=== PATIENT | female | born 1960 | race African-American/Black ===

== ENCOUNTER 2016-05-27 05:41 | Inpatient (IN) | payer OTHER ==
--- NOTE | 2016-05-22 09:53 | PREOPHP ---
DATE OF ADMISSION: 05/27/2016 PREOPERATIVE INTERNAL MEDICINE CONSULTATION, MEDICAL HISTORY AND PHYSICAL The patient to have surgery with Dr. Isra Dubose 05/27/2016. REQUESTING PHYSICIAN: Consultation requested by Dr. Isra Dubose for medical evaluation and cleara nce of a 56-year-old woman about to undergo surgery with Dr. Isra Dubose. Thank you, Dr. Dubose, for allowing us to participate in the care of this patient. HISTORY OF PRESENT ILLNESS: Julia Cornelius a 56-year-old woman, problems with her neck and cervical spine, currently being admitted for correction of the above problem. In terms of her past surgical history, she has had left shoulder arthroscopic surgery, left elbow cline rgery, as well as injury to her left elbow, has carpal tunnel, right and left, and also had a right elbow surgery. Other than that, she has not broken any bones, is not allergic to any medications, d oes not take any chronic medications, and states that her health has been relatively good. SOCIAL HISTORY: The patient is , has 5 children and 6 grandchildren, all in good health gabriela e for 1 grandchild has type 1 diabetes. She does not smoke. Alcohol socially. Does not drink coff ee, is employed and usually has no difficulty sleeping at night. FAMILY HISTORY: Both parents are . Father at age 81, was a diabetic, had hypertension and congestive heart failure. Mother at age 70, had different issues. One brother of al cohol-related issues. There is a family history of diabetes, heart and cancer, as well as hypertens ion and stroke. REVIEW OF SYSTEMS: HEENT: Periodic headaches, probably tension headaches. CARDIORESPIRATORY: Denies any chest pain or shortness of breath. GASTROINTESTINAL: No melena or hematemesis; however, does have some signs and symptoms of irritable bowel syndrome. GENITOURINARY: No urgency, frequency. GYNECOLOGIC: Currently perimenopausal. Up to date with her supervisor telephone answering service. MUSCULOSKELETAL: Positive for neck pain. NEUROPSYCHIATRIC: Unremarkable. GENERAL HEALTH: As above. PHYSICAL EXAMINATION: VITAL SIGNS: The patient's blood pressure was 112/70, pulse was 60 and regular, respirations were 1 8, temperature 98.3, height 5 feet 5 inches, weight 228 pounds. GENERAL: The patient was noted to be a well-developed, well-nourished female, alert and cooperative , in no apparent acute distress, oriented to time, place, and person. HEAD, EARS, EYES, NOSE AND THROAT: Head was atraumatic. Eyes: Pupils were equal, reactive to ligh t and accommodation. Fundi were benign. Tympanic membranes were unremarkable. Nose was negative. Mouth was unremarkable. Fair oral hygiene was present. NECK: Supple without any rigidity. Trachea was midline. Thyroid was within normal limits. Neck v eins were flat. Carotid pulses were equal. BACK: Unremarkable. CHEST: Symmetrical. BREASTS AND AXILLARY: Did not reveal any masses. LUNGS: Clear to percussion and auscultation. HEART: Revealed a regular rhythm without any murmurs, rubs, or gallops being elicited. ABDOMEN: Soft, good bowel sounds were noted. No significant organomegaly, masses, or tenderness. GENITALIA: Normal female external genitalia. PELVIC AND RECTAL: Per supervisor telephone answering service, done recently, unremarkable. EXTREMITIES: Did not reveal any clubbing, edema, or cyanosis. The scarring was noted from prior cline rgical procedures. Peripheral pulses were physiologic. SKIN: Moist and warm without any eruptions. No gross lymphadenopathy was noted. NEUROLOGIC: Grossly intact. IMPRESSION: 1. Cervical disk disease. 2. Metabolic syndrome. 3. History of glaucoma. 4. Stable health. DISCUSSION: Review of laboratory and other data revealed the following: The patient's chemistry pa corinna revealed normal electrolytes, glucose, BUN, creatinine. Liver function tests revealed an elevat ed alkaline phosphatase; however, normal PT and OT. Possibly secondary to bone. CBC revealed a whi te count of 11,000 and no obvious source of infection; however, the rest of the CBC was normal. Sed rate was normal as well. UA, PT, PTT were basically normal other than moderate amount of blood, po ssibly secondary to contamination. EKG was normal as was her chest x-ray. DISCUSSION: Dr. Dubose, I see no contraindication in this patient undergoing current proposed catalina lisa under the desired form of anesthesia. I feel she is a suitable candidate at this particular po int in time. The patient currently is on no medications and is not allergic to any medications and has been managing relatively well despite the fact that she has discomfort from her cervical disk di sease. Thank you again, Dr. Dubose, for allowing us to participate in the care of this patient. Will fol low her along with you during her stay at [facility]. Thank you again, Dr. Dubose, for allowing us to participate in care of this patient. Dictated By: AC GUALLPA MD SS/ELISSA Conf#: [id number] DID#: [id number]
[2016-05-24 09:33] VITALS: Ht 165.1 cm; Wt 103.9 kg
[~2016-05-27] VITALS: Ht 165.1 cm; Wt 103.9 kg
[2016-05-27] VITALS (23 sets, daily range): BP systolic 102–143; BP diastolic 55–78; PULSE 71–98; RESP 14–53
[~2016-05-27 05:41] MED LIST: CEFAZOLIN 2 GM/50 ML (PMX) 50 ML IVPB ONE; LACTATED RINGER'S 1,000 ML IV* ONE
[2016-05-27] MEDS ORDERED: PROPOFOL 100 ML ONE (06:44)
--- NOTE | 2016-05-27 06:58 | HPN ---
Date/Time of Note Date/Time of Note DATE: 05/27/16 TIME: 06:58 Interval H&P Admission Note Pt. seen H&P reviewed: No system changes MARQUES JENKINS MD May 27, 2016 06:58
[2016-05-27] MEDS ORDERED: SUCCINYLCHOLINE CHLORIDE 100 MG/5 ML SYG IV ONE (07:00)
[2016-05-27] MEDS ORDERED: ACETAMINOPHEN 1000 MG/100 ML IVPB ONE (07:00)
[2016-05-27] MEDS ORDERED: GELATIN SIZE 100 SPONGE ONE (07:35)
[2016-05-27] MEDS ORDERED: BUPIVACAINE 0.25% (MPF) 10 ML 10 ML VIAL ONE (07:36)
[2016-05-27] MEDS ORDERED: POLYMYXIN/BACITRACIN 1L IRRIG ONE (07:36)
[2016-05-27] MEDS ORDERED: THROMBIN 5000 UNIT VIAL ONE (07:36)
[2016-05-27] MEDS ORDERED: LABETALOL HCL 20MG INJ ONE (07:38)
[2016-05-27] MEDS ORDERED: MEPERIDINE 100 MG INJ ONE ×3 (07:39)
[2016-05-27] MEDS ORDERED: POVIDONE IODINE 10% 28.4 GM OINT ONE (07:39)
[2016-05-27] MEDS ORDERED: DEXAMETHASONE 4 MG/ML 1 ML INJ ONE (07:44)
[2016-05-27] MEDS ORDERED: hydrALAzine 20 MG INJ IV PRN (09:00)
[2016-05-27] MEDS ORDERED: LABETALOL HCL 20MG INJ IV PRN (09:00)
[2016-05-27] MEDS ORDERED: ONDANSETRON 4 MG INJ IV PRN ×2 (09:00→11:30)
[2016-05-27] MEDS ORDERED: MEPERIDINE 25 MG INJ IV PRN (09:00)
[2016-05-27] MEDS ORDERED: FENTAnyl 50 MCG/ML VIAL IV PRN ×3 (09:00)
[2016-05-27] MEDS ORDERED: EPHEDrine SULFATE 50 MG/5 ML SYG IV PRN (09:00)
[2016-05-27] MEDS ORDERED: HYDROmorphONE (0.2 MG/ML) 10ML SYG IV PRN ×2 (09:00)
[2016-05-27] MEDS ORDERED: ONDANSETRON 4 MG INJ ONE (10:09)
[2016-05-27] MEDS ORDERED: ROCURONIUM 50 MG INJ ONE (10:35)
[2016-05-27] MEDS ORDERED: GLYCOPYRROLATE 1 MG INJ ONE (10:36)
[2016-05-27] MEDS ORDERED: NEOSTIGMINE 3 MG/3 ML SYRINGE ONE (10:36)
[2016-05-27] MEDS ORDERED: LIDOCAINE 2% (SDV) 5 ML INJ ONE (10:36)
[2016-05-27] MEDS ORDERED: DIAZEPAM 5 MG/ML SYG IM PRN (11:30)
[2016-05-27] MEDS ORDERED: ZOLPIDEM 5 MG TAB PO PRN (11:30)
[2016-05-27] MEDS ORDERED: PROCHLORPERAZINE 10 MG TAB PO PRN (11:30)
[2016-05-27] MEDS ORDERED: BETHANECHOL 25 MG TAB PO PRN (11:30)
[2016-05-27] MEDS ORDERED: DIAZEPAM 5 MG TAB PO PRN (11:30)
[2016-05-27] MEDS ORDERED: HYDROmorphONE 0.2 MG/ML PCA IV SCH (11:30)
[2016-05-27] MEDS ORDERED: DIPHENHYDRAMINE 50 MG CAP PO PRN (11:30)
[2016-05-27] MEDS ORDERED: NACL 0.9% 3 ML SYG IV SCH (11:30)
[2016-05-27] MEDS ORDERED: AL HYDROX/MG HYDROX/SIMETH 30 ML CUP PO PRN (11:30)
[2016-05-27] MEDS ORDERED: TRIMETHOBENZAMIDE 100 MG/ML VIAL IM PRN (11:30)
[2016-05-27] MEDS ORDERED: CEPASTAT LOZENGE MT PRN (11:30)
[2016-05-27] MEDS ORDERED: HYDROCODONE/APAP (5/325) TAB PO PRN (11:30)
[2016-05-27] MEDS ORDERED: ACETAMINOPHEN 325 MG TAB PO PRN (11:30)
[2016-05-27] MEDS ORDERED: NALOXONE (0.4 MG/ML) INJ IV PRN (11:30)
--- NOTE | 2016-05-27 11:41 | OPPN ---
Date/Time of Note Date/Time of Note DATE: 05/27/16 TIME: 11:35 Operative/Procedure Note Pre-Operative Diagnosis Herniated cervical disc C6-7 Severe disc degeneration C6-7 Post-Operative Diagnosis Same Procedure Anterior cervical microdiscectomy at C6-7 Anterior cervical interbody arthrodesis at C6-7 Internal fixation C6-7 using Alphatec plate and screws Left iliac bone graft Application and removal of Camp-Wells tongs Cosmetic wound closures (5 cm left cervical and 3 cm left iliac) Intraoperative nerve monitoring (180 minutes) AP and lateral cervical radiographs (3 sets) Surgeon: MARQUES JENKINS MD Web Ui Designer: NEIL ESPINOZA Anesthesiologist: REED MARTINS Findings Operative findings include severe disc degeneration at C6-7 and a diffuse herniation abutting the cervical cord and C7 nerve roots. Blood Usage/Administration None Implants/Grafts 18 mm Alphatec cervical plate and 4 14 mm self-tapping screws Left iliac bone graft Estimated blood loss: 10 - 50 ml's Drains 2 medium Hemovac drains employed in the cervical wound 2 medium Hemovac drains employed in the left iliac wound Specimens Disc C6-7 Complications: None Anesthesia type: general MARQUES JENKINS MD May 27, 2016 11:41
[2016-05-27] MEDS: HYDROmorphONE (0.2 MG/ML) 10ML SYG IV PRN ×2 (11:49→11:55)
--- NOTE | 2016-05-27 12:51 | OPR ---
DATE OF OPERATION: 05/27/2016 PREOPERATIVE DIAGNOSIS: Herniated disk C6-7 with severe disk degeneration. POSTOPERATIVE DIAGNOSIS: Herniated disk C6-7 with severe disk degeneration. OPERATION PERFORMED: 1. Anterior cervical microdiskectomy at C6-7. 2. Anterior cervical interbody arthrodesis at C6-C7. 3. Internal fixation C6-C7 using 18 mm Alphatec plate with four 14 mm self-tapping screws. 4. Left iliac bone graft. 5. Application and removal of Camp-Wells tongs. 6. Cosmetic wound closures 5 cm left cervical, 3 cm left iliac). 7. AP and lateral cervical radiographs (3 sets). 8. Intraoperative nerve monitoring (3 hours). SURGEON: Isra Dubose MD SCHOOL COUNSELLOR Erna Scanlon PA-C ANESTHESIA: General endotracheal. ANESTHESIOLOGIST: Dr. Heath ESTIMATED BLOOD LOSS: 50 mL, none replaced. DRAINS: Two medium Hemovac drains employed in the cervical wound. Two medium Hemovac drains employ ed in the left iliac wound. COMPLICATIONS: None. PERTINENT HISTORY AND PHYSICAL: This is a 56-year-old female who sustained an injury to her back in course of employment on 03/02/2010. She has had extensive care since that time, has remained sympt omatic with neck and bilateral arm complaints which have been unrelieved by conservative management. She has undergone a number of diagnostic studies including an MRI of the cervical spine which demo nstrated a herniation of the C6-7 disk with severe disk degeneration and narrowing. Treatment optio ns were discussed with the patient, she elected to proceed with surgery. OPERATIVE FINDINGS AT SURGERY: Severe disk collapse and diffuse herniation at C6-7 was confirmed. The baseline intraoperative nerve monitoring revealed a decrease in the C5 potential on the left of 30%, the C6 potential on the left of 40%, the C6 potential on the right of 30%, the C7 potential on the left of 50% and the C7 potential on the right of 20%. These all returned to normal at the compl etion of surgery. OPERATIVE PROCEDURE: With the patient in supine position after satisfactory induction of general en dotracheal anesthesia by Dr. Heath, the patient was positioned in the supine position with a 5-pound sandbag under the left buttock and a 3 liter IV bottle under the shoulders. The anterior cervical s pine and left iliac crest were prepped and draped in usual sterile fashion. Athrombic pumps were ap plied to the legs below the knees to prevent venous stasis during and after procedure. An indwellin g Pedraza catheter was also placed preoperatively to facilitate bladder drainage during and after the procedure. A lateral cervical radiograph was taken but inadequate visualization of the C6-7 disk space required application of Camp-Wells tongs, which was performed using aseptic technique in the usual faswyo n. With this having been applied, an additional pbx manager image was taken which demonstrated visualizat ion of the C6-7 disk space and the surgery then proceeded. A 5 cm transverse incision over the anterior aspect of cervical spine, approximately 1 fingerbreadth above the left clavicle in line with the left clavicle, was made through skin and subcutaneous tiss ue to the platysma fascia. Superficial retractors were placed and hemostasis secured with electroca utery. Throughout the procedure, copious amounts of antibacterial irrigating solution was used to p eriodically irrigate the wound. The platysma fascia was divided transversely and the interval betwe en the sternocleidomastoid and strap muscles was then entered with blunt dissection. The trachea an d esophagus were then mobilized to the right and protected with a Cloward hand-held retractor. The peanut elevator was then used to clear the soft tissues over the anterior longitudinal ligament and a 20-gauge spinal needle was carefully angulated to prevent overpenetration was placed in what was f elt to be the C5-6 and C6-7 disk spaces. A lateral roentgenogram was taken which confirmed anatomic localization. The operating microscope then moved into place. The longissimus coli muscles were elevated bilaterally at the C6-7 disk level, and the Cloward self- retaining retractors were then placed underneath the longissimus coli muscles. A 15 blade knife use d to cut a rectangular window in the annulus and anterior longitudinal ligament at C6-7, and multipl e degenerative disk fragments were harvested with pituitary rongeurs and sent to laboratory for dire ct pathologic study. Additional fragments were harvested using 0, 2-0, 3-0 and 4-0 straight and ang ulated Sinai curettes. The dissection was carried out to the posterior longitudinal ligament. The Cloward interbody distractors were used to facilitate disk space distraction. The posterior longit udinal ligament was then taken down with a 1 mm Kerrison punch, to facilitate decompression of the s williams cord and the exiting C7 nerve roots bilaterally. Posterior osteophytes were also removed with 4-0 Sinai curettes. A high speed Randall bur was then used, using a jos tip to remove the car tilaginous endplates down to subchondral bleeding bone at C6-7. Attention was then turned to the left iliac crest where an incision was made 1 inch proximal and 1 i nch lateral to the anterior superior iliac spine in line with the iliac crest through skin and subcu taneous tissue to the fascia, once skin was infiltrated with 0.25% Marcaine without epinephrine for postoperative analgesia. The skin edges were then retracted over to the level of the iliac crest an d a fascial incision made directly over the left iliac crest with a hot knife. Subperiosteal dissec tion was then carried out in the inner and outer table of the left ilium. Tricortical iliac bone gr aft was then harvested using a Black and Jarrett reciprocating saw and a half-inch osteotome and mall et. The wound was copiously irrigated with antibacterial irrigating solution that the donor bone ed ges waxed for hemostasis. The wound was closed at the end of the procedure with 0 Vicryl sutures on the fascia, 2-0 Vicryl sutures in subcu tissue, and a 4-0 Vicryl subcuticular cosmetic closing sutu re on the skin. Two medium Hemovac drains were employed, one below the fascia, one above the fascia . With the bone plug was carefully trimmed to approximately 6 mm in height and 8 mm in depth, the Vineet juan interbody distractors then distracted to facilitate disk space distraction. After again copious irrigation, the bone plug was impacted into place at C6-7. The bone plug horton was removed. The Cloward distractors were removed and the Cloward bone plug impactors were used to seat the bone plug approximately 2 mm below the anterior lip of the vertebral bodies. An 18 mm Alphatec single level cervical plate was then selected and temporarily transfixed to the anterior cervical spine with 4 te mporary darts. An AP and lateral x-ray was then taken, which confirmed appropriate positioning of t he bone plug and the plate and screws. The screws were individually removed and replaced with a 14 mm self-tapping Alphatec locking screws. These were all secured underneath the locking plates. Fin al AP and lateral x-rays were taken, which confirmed appropriate positioning of the bone plug and th e hardware. The wound was again copiously irrigated with antibacterial irrigating solution and closed over 2 med ium Hemovac drains using 0 Vicryl sutures to reapproximate the interval between the sternocleidomast oid and strap muscles, 0 Vicryl sutures on the platysma fascia, 3-0 Vicryl sutures in subcu tissue, and a 4-0 Vicryl subcuticular cosmetic closing suture on the skin. Dermabond and sterile dressings were applied over both wound incisions and the patient's neck was then immobilized in an [place] colla r prior to extubation by Dr. Heath. The [employer] tongs were then removed and brief compression held over the pin holes until there was no evidence of bleeding. The patient was then transferred t o her bed and on to the recovery room in satisfactory condition. At the completion of the surgery, sponge, instrument and needle counts were correct. NEED FOR ICER HAND: During this spinal surgical procedure, my pizza hut assistant was used to retrac t and protect the spinal nerves and dural sac. My pizza hut assistant also employed the suction catheters to e vacuate blood from the surgical field to improve visualization of the neural structures. The assista nt was medically necessary to facilitate the completion of the surgery in a safe and expeditious man ner. State of [place] regulations, as well as hospital bylaws, preclude the use of non-licensed [facility] care personnel such as operating room technicians, to perform these functions. Throughout the procedure, neural monitoring was carried out by [employer] including EMG, SSEP and MEP monitoring of the C4, C5, C6, C7 and C8 nerve roots along with spinal co rd potentials bilaterally. These were interpreted by a neurologist employed by [employer]. Dictated By: ISRA DUBOSE MD TM/NTS Conf#: [id number] DID#: [id number] CC: AC GUALLPA MD;*End*
--- NOTE | 2016-05-27 13:13 | RADRPT ---
PROCEDURE: XR Cervical Spine. CLINICAL INDICATION: Intraoperative localization. Cervical spinal surgical procedure. TECHNIQUE: 5 lateral and 2 AP views of the cervical spine were performed. The images were reviewed on a PACS workstation. COMPARISON: None. FINDINGS: 7 intraoperative x-rays of the cervical spine are available for review. Surgical hardware seen. Im ages were obtained for localization during the procedure in progress. IMPRESSION: 1. Cervical spinal x-rays performed for intraoperative localization. RPTAT: QQ .Santos Dodge MD, Date Time Electronically viewed and signed by .Santos Dodge MD, on 05/27/2016 13:12 .R/
[2016-05-27] MEDS: CEFAZOLIN 1 GM/50 ML (PMX) 50 ML IVPB SCH ×3 (13:36→23:40)
[2016-05-27] MEDS: DEXTROSE 5%-0.45% NACL 1,000 ML IV SCH ×3 (13:37→22:14)
--- NOTE | 2016-05-27 14:16 | CONS ---
DATE OF ADMISSION: 05/27/2016 DATE OF CONSULTATION: The patient to have surgery with Dr. Isra Dubose for herniated cervical disk, 06/06/2016. HISTORY OF PRESENT ILLNESS: The patient seen postoperatively in her room, still quite groggy from h er anesthetic; however, does respond, did recognize me, and only complaint at this point is that she is in pain. PHYSICAL EXAMINATION: VITAL SIGNS: The patient's blood pressure is 121/62, pulse is 80, respirations 14, temperature 97%. The patient was afebrile earlier. HEENT: Unremarkable. LUNGS: Clear. HEART: Reveals a regular rhythm, cervical collar is noted in place with drains as well. IMPRESSION: 1. Status post cervical spine surgery for cervical disk disease. 2. Metabolic syndrome. 3. History of glaucoma. 4. Stable health. DISCUSSION: The patient at this time is still quite groggy from the anesthetic. Vital signs and O2 sat appear to be normal. We will monitor the patient with you during her stay at [facility]. Thank you again, Dr. Dubose, for allowing us to participate in the care of this patient. Dictated By: AC JOAQUIN/ELISSA Conf#: [id number] DID#: [id number]
[2016-05-27] MEDS: HYDROCODONE/APAP (5/325) TAB PO PRN ×2 (16:10→22:13)
[2016-05-27] MEDS: RANITIDINE 150 MG TAB PO SCH (20:09)
[2016-05-28] MEDS: CEFAZOLIN 1 GM/50 ML (PMX) 50 ML IVPB SCH (05:13)
[2016-05-28] MEDS: HYDROCODONE/APAP (5/325) TAB PO PRN ×3 (05:13→23:15)
[2016-05-28 05:40] LABS: HEMOGLOBIN 10.7 g/dl (12.0-16.0)
[2016-05-28 05:50] LABS: POTASSIUM 4.5 mmol/L (3.5-5.1)
[2016-05-28 05:53] LABS: CREATININE 0.64 mg/dl (0.44-1.00)
[2016-05-28 05:54] LABS: CALCIUM 8.4 mg/dl (8.4-10.2)
[2016-05-28 05:55] VITALS: BP 128/61; PULSE 70; RESP 18
--- NOTE | 2016-05-28 07:08 | PN ---
Date/Time of Note Date/Time of Note DATE: 05/28/16 TIME: 07:07 Assessment/Plan Lines/Catheters IV Catheter Type (from Nrs): Peripheral IV Pedraza in Place (from Nrs): Yes Subjective 24 Hr Interval Summary The patient is 1 day postop anterior cervical microdiscectomy and interbody arthrodesis at C6-7 using internal fixation and left iliac bone graft. She is resting comfortably in bed. Her cervical collar is in place. She has a Pedraza catheter in place. Her morning blood work is unremarkable. Examination reveals neurovascular structures to be intact distally. Her Hemovac drains have minimal output and will be removed this morning. Physical therapy will mobilize her as tolerated until she is independent. Her Pedraza catheter will be discontinued. Exam/Review of Systems Vital Signs Vitals Vital Signs Date Time Temp Pulse Resp B/P Pulse Ox O2 Delivery O2 Flow Rate FiO2 05/28/16 05:55 97.9 70 18 128/61 98 Nasal Cannula 2.0 Intake and Output 05/27/16 05/27/16 05/28/16 15:00 23:00 07:00 Intake Total 2200 ml 1000 ml 2200 ml Output Total 390 ml 450 ml 2804 ml Balance 1810 ml 550 ml -604 ml Results Result Diagram: 05/28/16 0425 05/28/16 0425 MARQUES JENKINS MD May 28, 2016 07:08
[2016-05-28 07:58] VITALS: BP 114/57; RESP 16
[2016-05-28] MEDS ORDERED: BETHANECHOL 25 MG TAB PO PRN (08:00)
[2016-05-28] MEDS: DOCUSATE SODIUM 100 MG CAP PO SCH ×2 (09:02→20:23)
[2016-05-28] MEDS: FERROUS SULFATE (EC) 325 MG TAB PO SCH ×3 (09:02→20:23)
[2016-05-28] MEDS: RANITIDINE 150 MG TAB PO SCH ×2 (09:02→20:23)
[2016-05-28] MEDS: ASCORBIC ACID 500 MG TAB PO SCH ×2 (09:02→20:23)
[2016-05-28 11:32] LABS: ADD UMIC YES; URINE BILIRUBIN (Dip) NEGATIVE (NEGATIVE); URINE BLOOD (Dip) 3+ (NEGATIVE); URINE COLOR LT. YELLOW (YELLOW); URINE GLUCOSE (Dip) NEGATIVE (NEGATIVE); URINE KETONES (Dip) NEGATIVE (NEGATIVE); URINE LEUKOCYTE ESTERASE (Dip) TRACE (NEGATIVE); URINE NITRITE (Dip) NEGATIVE (NEGATIVE); URINE TOTAL PROTEIN (Dip) NEGATIVE (NEGATIVE); URINE UROBILINOGEN (Dip) 0.2 E.U./dL (0.1-1.0)
--- NOTE | 2016-05-28 11:36 | CONS ---
DATE OF ADMISSION: 05/27/2016 DATE OF CONSULTATION: 05/28/2016 HISTORY OF PRESENT ILLNESS: The patient had a night that was not too restful secondary to pain and other reasons; however, she is feeling somewhat better today than she did yesterday immediately post operatively. PHYSICAL EXAMINATION: VITAL SIGNS: The patient's vital signs revealed the following: Temperature was 97.9, pulse 65, res pirations 16, blood pressure 114/57 and O2 sat was 99%. HEENT: Unremarkable. LUNGS: Clear. HEART: Reveals a regular rhythm. ABDOMEN: Exam unremarkable. IMPRESSION: 1. Status post cervical spine surgery. 2. Stable health. DISCUSSION: The patient's drains have been removed. A Pedraza catheter will come out today. She has her cervical collar on and seems to be improving. Her laboratory data revealed a hemoglobin of 10. 7, hematocrit of 33. Chemistries were basically within normal limits. Plan is per Dr. Isra pritchett. Thank you again, Dr. Dubose, for allowing us to participate in care of this patient. Dictated By: AC JOAQUIN/ELISSA Conf#: [id number] DID#: [id number]
[2016-05-28 12:12] LABS: SQUAMOUS EPITHELIAL CELL,UR FEW
[2016-05-28] MEDS: DEXTROSE 5%-0.45% NACL 1,000 ML IV SCH (16:43)
[2016-05-28 19:37] VITALS: BP 112/55; RESP 18
[2016-05-29] MEDS: DEXTROSE 5%-0.45% NACL 1,000 ML IV SCH ×2 (03:22→13:22)
[2016-05-29 08:08] VITALS: BP 119/56; RESP 18
[2016-05-29] MEDS: RANITIDINE 150 MG TAB PO SCH (08:34)
[2016-05-29] MEDS: DOCUSATE SODIUM 100 MG CAP PO SCH (08:34)
[2016-05-29] MEDS: HYDROCODONE/APAP (5/325) TAB PO PRN ×2 (08:34→12:54)
[2016-05-29] MEDS: ASCORBIC ACID 500 MG TAB PO SCH (08:34)
[2016-05-29] MEDS: FERROUS SULFATE (EC) 325 MG TAB PO SCH ×2 (08:34→12:54)
--- NOTE | 2016-05-29 15:38 | CONS ---
DATE OF ADMISSION: 05/27/2016 DATE OF CONSULTATION: HISTORY OF PRESENT ILLNESS: Visit and followup was done approximately 7:45 a.m. The patient much improved this morning, still has minimal pain, but has been walked with a walker and overall feels better. VITAL SIGNS: The patient's vital signs in the morning were 119/56, pulse was 79, respirations 18, t emperature 98.7, O2 saturation 99% on room air. HEENT: Other than cervical collar, unremarkable. LUNGS: Clear. HEART: Reveals a regular rate and rhythm. ABDOMEN: Examination is unremarkable. IMPRESSION: 1. Status post cervical spine surgery. 2. Stable health. DISCUSSION: No laboratory was available today. Patient has been progressing well, working with the rapy. The patient anticipates going home today. Thank you again, Dr. Dubose, for allowing us to participate in care of this patient. Dictated By: AC JOAQUIN/ELISSA Conf#: [id number] DID#: [id number]
== END 2016-05-29 16:00 | disposition home or self-care (01) | DRG 473 ==
LOC: REC 05:41 → MS1 12:28
PROVIDERS: ADMIT Orthopaedic Surgery; ATTEND Orthopaedic Surgery
PROC: 00NW0ZZ Release Cervical Spinal Cord, Open Approach (ICD-10-PCS; 2016-05-27)
PROC: 0RB30ZZ Excision of Cervical Vertebral Disc, Open Approach (ICD-10-PCS; 2016-05-27)
PROC: 01N10ZZ Release Cervical Nerve, Open Approach (ICD-10-PCS; 2016-05-27)
PROC: 0QB30ZZ Excision of Left Pelvic Bone, Open Approach (ICD-10-PCS; 2016-05-27)
PROC: 4A11X4G Monitoring of Peripheral Nervous Electrical Activity, Intraoperative, External Approach (ICD-10-PCS; 2016-05-27)
PROC: 0RG10A0 Fusion of Cervical Vertebral Joint with Interbody Fusion Device, Anterior Approach, Anterior Column, Open Approach (ICD-10-PCS; principal; 2016-05-27 07:00)
DX: M50.323 Other cervical disc degeneration at C6-C7 level (principal); E66.01 Morbid (severe) obesity due to excess calories; M50.223 Other cervical disc displacement at C6-C7 level; Z68.38 Body mass index [BMI] 38.0-38.9, adult
CPT/HCPCS: 72050; 80048; 81001; 81003; 84703; 85014; 85018; 86850; 86900; 86901; 86920; 87086; 97116; 97530; C1713; J0131; J0330; J0690; J1100; J1170; J2175; J2405; J2710; J3010; J7042; J7120